=== PATIENT | male | born 1995 | race Caucasian/White ===

== ENCOUNTER 2017-06-27 00:08 | Emergency (ER) | payer OTHER ==
[2017-06-27 00:19] VITALS: RESP 16; TEMP 97.5
[2017-06-27] MEDS ORDERED: IBUPROFEN 600 MG TAB PO ONE (00:38)
--- NOTE | 2017-06-27 00:57 | EDPHY ---
General Narrative: CHIEF COMPLAINT: Chest pain, "lung pain" HISTORY OF PRESENT ILLNESS: Patient complains of "lung pain." Started around new year's [place]. It was at 1st a bilateral chest pain that was associated with cough. He felt it was possible pneumonia but blew it off because it was mild. He had been around a friend with a recent diagnosis of bronchitis. He was back packing in [place] and [place] and was still able to do so. It was not an exertional pain. It subsided somewhat but never resolved. It has worsened over the past few days. It is primarily right-sided. It is anterior. Radiates to the back. It is worse with palpation of the arm and movement of the arm. It is not exertional. There is no shortness of breath. No extremity erythema edema or pain. No fever. No cough at this time. No other associated complaints or modifying factors. REVIEW OF SYSTEMS: Ten systems reviewed and are negative unless otherwise noted in the HPI PCP: In [facility] SPECIALISTS: None PAST MEDICAL HISTORY: ADD, not currently taking medications PAST SURGICAL HISTORY: No recent surgeries SOCIAL HISTORY: Daily smoker. 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 No wheezing, rhonchi or crackles. Painful inspiration and painful palpation of the right anterior axillary line. No crepitus or paradoxical movements. No diminishment or consolidation. Cardiovascular: Regular rate and rhythm. No murmur. Gastrointestinal: Abdomen is soft and nontender Back: non-tender, no bony abnormalities Neurological: A&O, nonfocal, normal gait Skin: Warm and dry, no rash Extremities: Nontender, no pedal edema Psychiatric: Mood and affect normal DIFFERENTIAL DIAGNOSES: Including but not limited to PE, ACS, bronchitis, pneumonia, pleurisy, costochondritis MDM: 12:55 a.m. Right-sided chest pain that is reproducible with palpation, movement inspiration vital signs are within normal limits. I do not think that this is a PE. Feel this is more likely costochondritis, intercostal strain, pleurisy or sequela from bronchitis. His lungs are clear in all jeffers. He is afebrile and is not pain coughing recently. Chest x-ray has been ordered. I have ordered EKG. He is resting comfortably in no acute distress. Minimal pain at this time. 1:15 a.m. EKG is unremarkable. 1:25 a.m. Chest x-ray as read by me is unremarkable for any acute findings. Re-evaluated the patient. I feel this is likely a costochondritis or musculoskeletal pain. It is completely reproducible with palpation and movement. It is not exertional. He is not tachycardic. He is not tachypneic. He is not hypoxic. There is no exertional pain. He has no evidence of DVT of the extremities. I feel the DVT and/or PE is extremely unlikely. His symptoms have been present for nearly 25 days. I will treat him with anti-inflammatories and short course of pain medication. We discussed short duration of follow-up, 24-48 hours. We discussed immediate return for any exertional pain, elevation of heart rate or shortness of breath. He is comfortable with this plan and discharged home in stable condition. EKG interpretation: Dr. Allan SUPERVISION: Patient was independently examined, but I discussed the case with my secondary supervising physician Dr. Allan - Diagnostics Imaging Results: Imaging Impressions Chest X-Ray 06/27/17 00:35 Impression: Normal chest x-ray. - History Smoking Status: Current some day smoker - Objective Vital Signs: Initial Vital Signs Temperature (C) 97.5 F 06/27/17 00:12 Heart Rate 71 06/27/17 00:12 Respiratory Rate 16 06/27/17 00:12 Blood Pressure 136/87 H 06/27/17 00:12 O2 Sat (%) 96 06/27/17 00:12 O2 Delivery Mode Room Air Allergies/Adverse Reactions: No Known Allergies Allergy (Unverified 06/27/17 00:17) Home Medications: Medication Instructions Recorded Adderall 10 MG (*) 06/27/17 Medications Given: Discontinued Medications Ibuprofen (Motrin) 600 mg PO EDNOW ONE Stop: 06/27/17 00:39 Last Admin: 06/27/17 00:40 Dose: 600 mg Ketorolac Tromethamine (Toradol) 30 mg IM EDNOW ONE Stop: 06/27/17 01:17 Last Admin: 06/27/17 01:26 Dose: 30 mg Oxycodone/Acetaminophen (Percocet 5/325mg Prepack#4) 1 btl JENNIE CORTEZ ONE Stop: 06/27/17 01:17 Last Admin: 06/27/17 01:27 Dose: 1 btl Departure - Departure Disposition: Home, Routine, Self-Care Clinical Impression: Costochondritis, acute Condition: Good Instructions: Oxycodone/Acetaminophen (By mouth), Costochondritis (ED) Additional Instructions: 1. Continue your previous prescribed antibiotics to completion 2. Naproxen [id number], 2 pills by mouth twice daily for 7-10 days and stop 3. Pain medication as provided from the emergency department as needed 4. Return to emergency department immediately for any worsening pain, exertional pain, shortness of breath, redness or pain of the extremities 5. Follow up with primary care physician upon return to [place] Referrals: LOLY IBARRA [Other] - As per Instructions
--- NOTE | 2017-06-27 01:03 | CPEKG ---
Heart Rate: 59 RR Interval: 1017 P-R Interval: 136 QRSD Interval: 80 QT Interval: 380 QTC Interval: 377 P [place]: 37 QRS [place]: 60 T Wave [place]: 38 EKG Severity - NORMAL ECG - EKG Impression: SINUS RHYTHM Electronically Signed By: Alin Allan 27-Jun-2017 03:11:18
[2017-06-27] MEDS ORDERED: KETOROLAC 30 MG/1 ML SDV IM ONE (01:16)
[2017-06-27] MEDS ORDERED: OXYCODONE/APAP 5/325MG PREPACK#4 BTL TAKEHOME ONE (01:16)
[2017-06-27 01:34] VITALS: BP 124/89; PULSE 56; O2SAT 97
== END 2017-06-27 01:35 | disposition home or self-care (01) ==
DX: M94.0 Chondrocostal junction syndrome [Tietze] (principal); F17.200 Nicotine dependence, unspecified, uncomplicated
CPT/HCPCS: J1885